=== PATIENT | female | born 1995 | race Caucasian/White ===

== ENCOUNTER 2018-02-27 11:36 | Emergency (ER) | payer MEDICAID ==
[~2018-02-27] VITALS: Ht 157.5 cm; Wt 64.0 kg
[2018-02-27] MEDS ORDERED: DEXAMETHASONE 10 MG/ML VIAL IM ONE (13:15)
[2018-02-27] MEDS ORDERED: AMOXICILLIN/POTASSIUM CLAVULANATE 875/125MG TAB PO ONE (13:15)
[2018-02-27] MEDS ORDERED: KETOROLAC 30MG/ML VIAL IM ONE (13:15)
[2018-02-27 14:40] VITALS: BP 109/66
== END 2018-02-27 14:44 | disposition home or self-care (01) ==
LOC: ER 14:13
DX: J03.90 Acute tonsillitis, unspecified (principal); F12.10 Cannabis abuse, uncomplicated
CPT/HCPCS: 96372; 99284; J1100; J1885

== ENCOUNTER 2018-03-01 10:00 | Emergency (ER) | payer MEDICAID ==
[~2018-03-01] VITALS: Ht 152.4 cm; Wt 65.0 kg
[2018-03-01 10:10] VITALS: BP 103/58
[2018-03-01] MEDS ORDERED: IBUP-2029 PO (10:13)
[2018-03-01] MEDS ORDERED: [UNRECOGNIZED DRUG - REMARK] (10:13)
== END 2018-03-01 11:49 | disposition home or self-care (01) ==
LOC: ER 10:00
DX: J02.9 Acute pharyngitis, unspecified (principal); F12.90 Cannabis use, unspecified, uncomplicated
CPT/HCPCS: 99281

== ENCOUNTER 2022-03-08 10:04 | Inpatient (IN) | payer MEDICAID ==
[~2022-03-08] VITALS: Ht 304.8 cm; Wt 74.8 kg
[~2022-03-08 10:04] MED LIST: IBUP-2029 PO; [UNRECOGNIZED DRUG - REMARK]
[2022-03-08] MEDS ORDERED: IBUPROFEN 400MG TABLET PO ONE (14:45)
[2022-03-08 15:23] LABS: CLARITY URINE CLEAR (CLEAR); COLOR URINE YELLOW (YELLOW); KETONES URINE NEGATIVE (NEGATIVE); LEUKOCYTE ESTERASE URINE TRACE (NEGATIVE); NITRITE URINE NEGATIVE (NEGATIVE); OCCULT BLOOD URINE 3+ (NEGATIVE); PH URINE 6.5 (4.5-8.0); PROTEIN URINE NEGATIVE (NEGATIVE); SPECIFIC GRAVITY URINE 1.006 (1.005-1.030); UROBILINOGEN URINE 0.2 E.U./dL (0.2-1.0)
[2022-03-08 16:08] LABS: HCG SCREEN POSITIVE
[2022-03-08 17:09] LABS: BASOPHILS % 0.3 % (0.0-2.0); EOSINOPHILS % 1.9 % (0.0-5.0); HEMATOCRIT. 38.9 % (36.0-48.0); HEMOGLOBIN. 13.4 g/dL (12.0-16.0); LYMPHOCYTES % 37.7 % (20.0-50.0); MEAN CORPUSCULAR HEMOGLOBIN 30.7 pg (28.0-32.0); MEAN PLATELET VOLUME 9.6 fl (7.4-10.4); MONOCYTES % 4.7 % (2.0-8.0); NEUTROPHILS % 55.4 % (40.0-76.0); PLATELET 265 x1000/uL (130-400); RED BLOOD CELL COUNT 4.37 mill/uL (4.2-5.4); RED CELL DISTRIBUTION WIDTH 12.7 % (11.6-14.6)
[2022-03-08 17:20] LABS: CHLORIDE 105 mEq/L (98-107)
[2022-03-08 17:33] LABS: B-HCG QUANTITATIVE 37 mIU/mL (<3)
[2022-03-09 05:46] LABS: PARTIAL THROMBOPLASTIN TIME 28.5 sec (23.4-31.0); PROTHROMBIN TIME 10.7 sec (9.6-11.0)
[2022-03-09] MEDS ORDERED: MIDAZOLAM HCL 2 MG/2 ML VIAL ONE (06:14)
[2022-03-09] MEDS ORDERED: PROPOFOL 200MG/20ML VIAL IV ONE (06:14)
[2022-03-09] MEDS ORDERED: LIDOCAINE HCL 1% 10 MG/ML 10ML VIAL ONE (06:14)
[2022-03-09] MEDS ORDERED: FENTANYL CITRATE/PF 50MCG/ML 2ML VIAL ONE ×3 (06:15→08:26)
[2022-03-09] MEDS ORDERED: SUCCINYLCHOLINE CHLORIDE 200MG/10ML IV ONE (06:15)
[2022-03-09] MEDS ORDERED: ROCURONIUM BROMIDE 10MG/ML VIAL 5ML IV ONE (06:15)
[2022-03-09] MEDS ORDERED: DEXAMETHASONE 4MG/ML 1ML VIAL ONE (06:25)
[2022-03-09] MEDS ORDERED: BUPIVACAINE HCL/PF 0.25% (2.5MG/ML) 10ML ONE ×3 (06:47→08:10)
[2022-03-09] MEDS ORDERED: PHENYLEPHRINE HCL 10 MG/ML 1ML (IV VIAL) IV ONE (06:53)
[2022-03-09] MEDS ORDERED: METOCLOPRAMIDE HCL 10MG/2ML VIAL ONE (07:03)
[2022-03-09] MEDS ORDERED: ONDANSETRON HCL 4MG/2ML INJ ONE (07:03)
[2022-03-09] MEDS ORDERED: ONDANSETRON HCL 4MG/2ML INJ IV PRN (07:30)
[2022-03-09] MEDS ORDERED: NEOSTIGMINE METHYLSULFATE 1MG/ML 10 ML VIAL ONE (07:57)
[2022-03-09] MEDS ORDERED: GLYCOPYRROLATE 0.2 MG/ML 2ML VIAL ONE ×2 (07:57)
[2022-03-09] MEDS ORDERED: KETOROLAC 30MG/ML VIAL ONE (08:25)
[2022-03-09] MEDS ORDERED: IBUPROFEN 800MG TABLET PO PRN (09:00)
[2022-03-09] MEDS ORDERED: NALOXONE HCL 0.4MG/ML VIAL IV PRN (09:15)
[2022-03-09] MEDS: HYDROMORPHONE HCL/PF 2MG/ML CPJ IV PRN ×2 (09:35→21:24)
[2022-03-09 10:58] VITALS: BP 109/49
[2022-03-09 11:24] VITALS: BP 109/49
[2022-03-09 12:00] VITALS: BP 104/53
[2022-03-09] MEDS: MORPHINE SULFATE 2 MG/ML CPJ (NOT FOR IM USE) IV PRN (15:55)
[2022-03-09 16:00] VITALS: BP 110/57
[2022-03-09] MEDS: IBUPROFEN 800MG TABLET PO PRN (17:49)
[2022-03-09] MEDS: MORPHINE SULFATE 4 MG/ML CPJ (NOT FOR IM USE) IV PRN (18:54)
[2022-03-09 20:00] VITALS: BP 98/57
[2022-03-10] VITALS: BP 90/52
[2022-03-10 04:00] VITALS: BP 102/52
[2022-03-10] MEDS: MORPHINE SULFATE 4 MG/ML CPJ (NOT FOR IM USE) IV PRN ×3 (06:26→18:07)
[2022-03-10 06:41] LABS: BASOPHILS % 0.2 % (0.0-2.0); EOSINOPHILS % 0.3 % (0.0-5.0); HEMOGLOBIN. 12.2 g/dL (12.0-16.0); LYMPHOCYTES % 25.4 % (20.0-50.0); MEAN CORPUSCULAR HEMOGLOBIN 30.8 pg (28.0-32.0); MEAN CORPUSCULAR VOLUME 88.4 fL (81.0-99.0); MEAN PLATELET VOLUME 9.5 fl (7.4-10.4); MONOCYTES % 4.9 % (2.0-8.0); NEUTROPHILS % 69.2 % (40.0-76.0); PLATELET 235 x1000/uL (130-400); RED BLOOD CELL COUNT 3.96 mill/uL (4.2-5.4); RED CELL DISTRIBUTION WIDTH 12.5 % (11.6-14.6)
[2022-03-10 08:00] VITALS: BP 101/49
[2022-03-10 08:26] LABS: CHLORIDE 107 mEq/L (98-107)
[2022-03-10 08:35] LABS: PHOSPHORUS 3.8 mg/dL (2.5-4.9)
[2022-03-10] MEDS: MORPHINE SULFATE 2 MG/ML CPJ (NOT FOR IM USE) IV PRN (10:20)
[2022-03-10 12:00] VITALS: BP 112/57
[2022-03-10 16:00] VITALS: BP 108/63
[2022-03-10] MEDS: DOCUSATE SODIUM 250MG CAPSULE PO SCH (18:05)
[2022-03-11] VITALS: BP 99/48
[2022-03-11 04:00] VITALS: BP 101/52
[2022-03-11 07:25] LABS: BASOPHILS % 0.4 % (0.0-2.0); EOSINOPHILS % 1.7 % (0.0-5.0); HEMATOCRIT. 41.3 % (36.0-48.0); HEMOGLOBIN. 13.9 g/dL (12.0-16.0); LYMPHOCYTES % 38.3 % (20.0-50.0); MEAN CORPUSCULAR HEMOGLOBIN 30.3 pg (28.0-32.0); MEAN CORPUSCULAR VOLUME 89.9 fL (81.0-99.0); MEAN PLATELET VOLUME 9.9 fl (7.4-10.4); MONOCYTES % 4.1 % (2.0-8.0); NEUTROPHILS % 55.5 % (40.0-76.0); PLATELET 260 x1000/uL (130-400); RED CELL DISTRIBUTION WIDTH 12.9 % (11.6-14.6)
[2022-03-11 07:30] LABS: CHLORIDE 107 mEq/L (98-107)
[2022-03-11 08:00] VITALS: BP 100/52
[2022-03-11] MEDS: DOCUSATE SODIUM 250MG CAPSULE PO SCH (09:42)
[2022-03-11] MEDS ORDERED: DOCU250C14 PO (11:53)
[2022-03-11] MEDS ORDERED: HYDR-4001 MT (11:53)
[2022-03-11 12:00] VITALS: BP 111/52
[2022-03-11] MEDS: IBUPROFEN 800MG TABLET PO PRN (13:09)
[2022-03-11 14:18] VITALS: BP 18/111
[2022-03-11 15:54] VITALS: BP 107/65
== END 2022-03-11 17:06 | disposition home or self-care (01) | DRG 547 ==
LOC: ER 11:26 → EDBEDREQTM 03-09 00:41 → EDBEDREQ 03-09 00:41 → 6EST 03-09 10:51
PROVIDERS: ADMIT Internal Medicine; ATTEND Internal Medicine
PROC: 10T20ZZ Resection of Products of Conception, Ectopic, Open Approach (ICD-10-PCS; principal; 2022-03-09)
PROC: 10J24ZZ Inspection of Products of Conception, Ectopic, Percutaneous Endoscopic Approach (ICD-10-PCS; 2022-03-09)
DX: O00.101 Right tubal pregnancy without intrauterine pregnancy (principal); K66.1 Hemoperitoneum; O08.89 Other complications following an ectopic and molar pregnancy; Z20.822 Contact with and (suspected) exposure to COVID-19
CPT/HCPCS: 36415; 76801; 80048; 80053; 81003; 83735; 84100; 84702; 84703; 85025; 86850; 86900; 87426; 88302; 93970; 99291; C9803; J0330; J1100; J1170; J1885; J2250; J2270; J2370; J2405; J2704; J2710; J2765; J3010; J3490; J7030